=== PATIENT | female | born 1960 | race Caucasian/White ===

== ENCOUNTER → 2019-09-02 | Outpatient (CLI) | payer OTHER | END | disposition home or self-care (01) | LOC: CFH 08:09 | PROVIDERS: ATTEND Family Medicine | DX: Z12.31 Encounter for screening mammogram for malignant neoplasm of breast (principal); D17.24 Benign lipomatous neoplasm of skin and subcutaneous tissue of left leg; D17.23 Benign lipomatous neoplasm of skin and subcutaneous tissue of right leg; J30.1 Allergic rhinitis due to pollen; R73.03 Prediabetes; M25.50 Pain in unspecified joint; N64.89 Other specified disorders of breast | CPT/HCPCS: 77067 ==

== ENCOUNTER → 2020-09-11 | Outpatient (CLI) | payer OTHER | END | disposition home or self-care (01) | LOC: LAB 17:01 | PROVIDERS: ATTEND Family Medicine | DX: M54.9 Dorsalgia, unspecified (principal) | CPT/HCPCS: 36415; 85379 ==